=== PATIENT | male | born 1930 | race Hispanic/Latino ===

== ENCOUNTER 2020-07-07 03:59 | Observation (INO) | payer OTHER, BC ==
[2020-07-07 05:21] LABS: Absolute Lymphocytes (CBC) 1.2 K/uL (0.7-4.9); Basophils % 1.1 % (0-1.3); Hematocrit 44.1 % (39.6-49.0); Lymphocytes % 9.3 % (15.3-44.8); MPV 8.6 fL (7.6-11.3); RBC Red Blood Cell Count 5.07 M/uL (4.33-5.43)
[2020-07-07 05:22] LABS: Protime INR 1.09
[2020-07-07] MEDS ORDERED: MORPHINE 2 MG/ML SYR ONE ×2 (05:23→06:20)
[2020-07-07] MEDS ORDERED: ASPIRIN 81 MG CHEWABLE TABLET ONE (05:23)
[2020-07-07] MEDS ORDERED: ONDANSETRON 4 MG/2 ML VIAL ONE (05:24)
[2020-07-07 05:25] LABS: ALT/SGPT 10 U/L (12-78); AST/SGOT 10 U/L (15-37); Albumin 3.9 g/dL (3.4-5.0); Alkaline Phosphatase 127 U/L (45-117); BUN Blood Urea Nitrogen 18 mg/dL (7-18); Bicarbonate 25 mmol/L (21-32); Bilirubin Direct 0.1 mg/dL (0-0.2); Bilirubin Total 0.4 mg/dL (0.2-1.0); Glucose Level 198 mg/dL (74-106); Magnesium 2.1 mg/dL (1.8-2.4); NT PRO-BNP 501 pg/mL (<450); Potassium 3.3 mmol/L (3.5-5.1); Protein, Total 7.9 g/dL (6.4-8.2); Sodium Level 139 mmol/L (136-145); Troponin (Emerg Dept Use Only) < 0.02 ng/mL (0.0-0.045)
--- NOTE | 2020-07-07 05:39 | ER ---
Nurse's Notes [facility] Name: Louis Del Rio Age: 89 yrs Sex: Male : 1930 Arrival Date: 07/07/2020 Time: 04:00 Bed 8 Private MD: Robbin Juarez C Diagnosis: Chest pain, unspecified Presentation: 07/07 05:25 Chief complaint: Patient states: chest pain started at 2330 last night, right anterior rv chest wall. stabbing pain, 8/10. Coronavirus screen: Client denies travel out of the [place] in the last 14 days. Ebola Screen: No symptoms or risks identified at this time. Initial Sepsis Screen: Does the patient meet any 2 criteria? No. Patient's initial sepsis screen is negative. Does the patient have a suspected source of infection? No. Patient's initial sepsis screen is negative. Risk Assessment: Do you want to hurt yourself or someone else? Patient reports no desire to harm self or others. Onset of symptoms was July 06, 2020 at 23:30. 05:25 Method Of Arrival: Ambulatory rv 05:25 Acuity: JOSUE 3 rv Triage Assessment: 05:26 General: Appears uncomfortable, Behavior is calm, cooperative. Pain: Complains of pain rv in chest. Neuro: Level of Consciousness is awake, alert, obeys commands, Oriented to person, place, time, situation. Cardiovascular: Patient's skin is warm and dry. Respiratory: Airway is patent Respiratory effort is even, unlabored, Breath sounds are clear bilaterally. Derm: Skin is intact. Historical: - Allergies: 05:26 No Known Allergies; rv - PMHx: 05:26 Arthritis; gallbladder CA; rv - PSHx: 05:26 Unable to obtain; rv - Immunization history:: Adult Immunizations up to date. - Social history:: Smoking status: Patient denies any tobacco usage or history of. Screenin:30 Abuse screen: Denies threats or abuse. Denies injuries from another. Nutritional rv screening: No deficits noted. Tuberculosis screening: No symptoms or risk factors identified. Fall Risk None identified. Assessment: 05:30 Pain: Pain does not radiate. Pain began suddenly. rv Vital Signs: 04:23 BP 153 / 58; Pulse 93; Resp 22; Temp 98.2; Pulse Ox 94% on R/A; Weight 84.37 kg (R); tt3 Height 5 ft. 11 in. (180.34 cm) (R); Pain 8/10; 05:31 BP 144 / 82; Pulse 64; Resp 15; Pulse Ox 96% on R/A; rv 06:08 BP 151 / 93; Pulse 91; Resp 23; Pulse Ox 97% on R/A; rv 04:23 Body Mass Index 25.94 (84.37 kg, 180.34 cm) tt3 ED Course: 04:00 Patient arrived in ED. am2 04:00 Robbin Juarez MD is Private Physician. am2 04:04 Francisco Hamilton MD is Attending Physician. mh7 04:24 EKG done, by ED staff. tt3 04:31 Papi Newberry RN is Primary Nurse. rv 04:47 XRAY Chest (1 view) In Process Unspecified. EDMS 05:00 Inserted saline lock: 20 gauge in left antecubital area, using aseptic technique. Blood rv collected. Patient maintains SpO2 saturation greater than 95% on room air. 05:26 Triage completed. rv 05:30 Arm band placed on right wrist. Patient placed in the treatment room, on a stretcher, rv Patient notified of wait time. 05:30 Patient has correct armband on for positive identification. quality assurance monitor chassis on. Pulse rv ox on. NIBP on. 05:38 Robbin Juarez MD is Hospitalizing Provider. mh7 05:48 No provider procedures requiring assistance completed. rv 07:09 Primary Nurse role handed off by Papi Newberry RN bp 07:09 Delvin Oakley, KIM is Primary Nurse. bp 20:26 IV discontinued, intact, bleeding controlled, No redness/swelling at site. Pressure ea dressing applied. Administered Medications: 05:22 Drug: Zofran (Ondansetron) 4 mg Route: IVP; Site: left antecubital; rv 06:07 Follow up: Response: No adverse reaction rv 05:22 Drug: Aspirin Chewable Tablet 162 mg Route: PO; rv 06:07 Follow up: Response: No adverse reaction rv 05:23 Drug: morphine 2 mg {Note: rass 0.} Route: IVP; Site: left antecubital; rv 06:07 Follow up: Response: No adverse reaction; Pain is unchanged, physician notified; RASS: rv Alert and Calm (0) 06:07 Drug: morphine 2 mg Route: IVP; Site: left antecubital; rv Outcome: 05:39 Decision to Hospitalize by Provider. hans 20:25 Discharged to home with family. marge 20:25 Condition: stable 20:25 Discharge instructions given to patient, Instructed on discharge instructions, follow up and referral plans. medication usage, Demonstrated understanding of instructions, follow-up care, medications. 20:26 Patient left the ED. ea Signatures: Dispatcher [employer] EDAnn Ramos am2 Sarika Ray RN RN Delvin Cordero RN RN Papi Li RN RN rv Holmes, Maurice, MD MD [facility] Iain Brandon3
--- NOTE | 2020-07-07 05:40 | EDPHYS ---
Physician Documentation [facility] Name: Louis Del Rio Age: 89 yrs Sex: Male : 1930 Arrival Date: 07/07/2020 Time: 04:00 Bed 8 Private MD: Robbin Juarez C ED Physician Francisco Hamilton HPI: 07/07 04:59 This 89 yrs old Male presents to ER via Unassigned with complaints of Chest mh7 Pain > 30 y/o. 04:59 The patient or guardian reports chest pain that is located primarily in the anterior mh7 chest wall, right. Onset: last night. The pain does not radiate. Associated signs and symptoms: Pertinent positives: nausea, vomiting. The chest pain is described as a heaviness. Duration: The patient or guardian reports multiple episodes, that are intermittent, that wax and wane, with no pattern. Modifying factors: The symptoms are alleviated by nothing. the symptoms are aggravated by deep breath. Severity of pain: At its worst the pain was moderate last night, in the emergency department the pain is unchanged. Historical: - Allergies: 05:26 No Known Allergies; rv - PMHx: 05:26 Arthritis; gallbladder CA; rv - PSHx: 05:26 Unable to obtain; rv - Immunization history:: Adult Immunizations up to date. - Social history:: Smoking status: Patient denies any tobacco usage or history of. ROS: 04:59 Constitutional: Negative for fever, chills, and weight loss, Eyes: Negative for injury, mh7 pain, redness, and discharge, ENT: Negative for injury, pain, and discharge, Neck: Negative for injury, pain, and swelling, Back: Negative for injury and pain, : Negative for injury, bleeding, discharge, and swelling, MS/Extremity: Negative for injury and deformity, Skin: Negative for injury, rash, and discoloration, Neuro: Negative for headache, weakness, numbness, tingling, and seizure, Psych: Negative for depression, anxiety, suicide ideation, homicidal ideation, and hallucinations, Allergy/Immunology: Negative for hives, rash, and allergies, Endocrine: Negative for neck swelling, polydipsia, polyuria, polyphagia, and marked weight changes, Hematologic/Lymphatic: Negative for swollen nodes, abnormal bleeding, and unusual bruising. Exam: 04:59 Constitutional: This is a well developed, well nourished patient who is awake, alert, mh7 and in no acute distress. Head/Face: Normocephalic, atraumatic. Eyes: Pupils equal round and reactive to light, extra-ocular motions intact. Lids and lashes normal. Conjunctiva and sclera are non-icteric and not injected. Cornea within normal limits. Periorbital areas with no swelling, redness, or edema. Neck: Trachea midline, no thyromegaly or masses palpated, and no cervical lymphadenopathy. Supple, full range of motion without nuchal rigidity, or vertebral point tenderness. No Meningismus. Chest/axilla: Normal chest wall appearance and motion. Nontender with no deformity. No lesions are appreciated. Cardiovascular: Regular rate and rhythm with a normal S1 and S2. No gallops, murmurs, or rubs. Normal PMI, no JVD. No pulse deficits. Respiratory: Lungs have equal breath sounds bilaterally, clear to auscultation and percussion. No rales, rhonchi or wheezes noted. No increased work of breathing, no retractions or nasal flaring. Abdomen/GI: Soft, non-tender, with normal bowel sounds. No distension or tympany. No guarding or rebound. No evidence of tenderness throughout. Back: No spinal tenderness. No costovertebral tenderness. Full range of motion. Skin: Warm, dry with normal turgor. Normal color with no rashes, no lesions, and no evidence of cellulitis. MS/ Extremity: Pulses equal, no cyanosis. Neurovascular intact. Full, normal range of motion. Neuro: Awake and alert, GCS 15, oriented to person, place, time, and situation. Cranial nerves II-XII grossly intact. Motor strength 5/5 in all extremities. Sensory grossly intact. Cerebellar exam normal. Normal gait. Psych: Awake, alert, with orientation to person, place and time. Behavior, mood, and affect are within normal limits. Vital Signs: 04:23 BP 153 / 58; Pulse 93; Resp 22; Temp 98.2; Pulse Ox 94% on R/A; Weight 84.37 kg (R); tt3 Height 5 ft. 11 in. (180.34 cm) (R); Pain 8/10; 05:31 BP 144 / 82; Pulse 64; Resp 15; Pulse Ox 96% on R/A; rv 06:08 BP 151 / 93; Pulse 91; Resp 23; Pulse Ox 97% on R/A; rv 04:23 Body Mass Index 25.94 (84.37 kg, 180.34 cm) tt3 MDM: 05:36 Differential diagnosis: abnormal EKG, acute myocardial infarction, acute pericarditis, mh7 anxiety, coronary artery disease chest wall pain, congestive heart failure cholecystitis, Cholelithiasis costochondritis, gastritis, herpes zoster, mitral valve prolapse, pancreatitis, peptic ulcer disease, pericarditis, pneumonia, pneumothorax. HEART Score: History: Moderately Suspicious (1), ECG: Non specific repolarization disturbance / LBTB / PM (1), Age: > or = 65 years (2), Risk Factors: 1 or 2 risk factors (1), [Hypertension] Troponin: < or = 1 x Normal Limit (0), Total Score = 5. The patient was given aspirin in the Emergency Department. Data reviewed: vital signs, nurses notes, lab test result(s), cardiac enzymes, CBC, electrolytes, urinalysis, EKG, radiologic studies, plain films. Data interpreted: Pulse oximetry: on room air is 96 %. Interpretation: normal. Counseling: I had a detailed discussion with the patient and/or guardian regarding: the historical points, exam findings, and any diagnostic results supporting the discharge/admit diagnosis, the presence of at least one elevated blood pressure reading (>120/80) during this emergency department visit, lab results, radiology results, the need for further work-up and treatment in the hospital. Response to treatment: the patient's symptoms have mildly improved after treatment. 05:39 Patient medically screened. 07/07 04:31 Order name: Basic Metabolic Panel; Complete Time: 05:30 07/07 04:31 Order name: CBC with Diff; Complete Time: 05:30 07/07 04:31 Order name: LFT's; Complete Time: 05:30 07/07 04:31 Order name: Magnesium; Complete Time: 05:07/07 04:31 Order name: NT PRO-BNP; Complete Time: 05:30 07/07 04:31 Order name: PT-INR; Complete Time: 05:07/07 04:31 Order name: Troponin (emerg Dept Use Only); Complete Time: 05:30 7 07/07 06:36 Order name: Troponin I [facility] 07/07 06:36 Order name: Troponin I; Complete Time: 19:33 [facility] 07/07 06:36 Order name: Troponin I; Complete Time: 19:33 [facility] 07/07 06:36 Order name: Troponin I; Complete Time: 19:33 [facility] 07/07 10:40 Order name: CORONAVIRUS [facility] 07/07 11:24 Order name: SARS-COV-2 RT PCR; Complete Time: 19:33 [facility] 07/07 13:35 Order name: Carcinoembryonic Antigen; Complete Time: 19:33 [facility] 07/07 04:31 Order name: XRAY Chest (1 view); Complete Time: 19:33 7 07/07 04:31 Order name: EKG; Complete Time: 04:33 7 07/07 04:31 Order name: Cardiac monitoring; Complete Time: 05:48 7 07/07 04:31 Order name: EKG - Nurse/Tech; Complete Time: 05:48 7 07/07 04:31 Order name: IV Saline Lock; Complete Time: 05:48 7 07/07 04:31 Order name: Labs collected and sent; Complete Time: 05:48 7 07/07 04:31 Order name: O2 Per Protocol; Complete Time: 05:48 7 07/07 06:36 Order name: CONS Physician Consult [facility] 07/07 06:36 Order name: Heart Healthy [facility] 07/07 13:17 Order name: Diet Ada 1800 Uri; Complete Time: 13:18 eb 07/07 13:39 Order name: Hemoglobin A1c; Complete Time: 19:33 [facility] 07/07 15:36 Order name: US; Complete Time: 19:33 [facility] 07/07 04:31 Order name: O2 Sat Monitoring; Complete Time: 05:48 mh7 Administered Medications: 05:22 Drug: Zofran (Ondansetron) 4 mg Route: IVP; Site: left antecubital; rv 06:07 Follow up: Response: No adverse reaction rv 05:22 Drug: Aspirin Chewable Tablet 162 mg Route: PO; rv 06:07 Follow up: Response: No adverse reaction rv 05:23 Drug: morphine 2 mg {Note: rass 0.} Route: IVP; Site: left antecubital; rv 06:07 Follow up: Response: No adverse reaction; Pain is unchanged, physician notified; RASS: rv Alert and Calm (0) 06:07 Drug: morphine 2 mg Route: IVP; Site: left antecubital; rv Disposition: 07/07/20 05:39 Hospitalization ordered by Robbin Juarez for Observation. Preliminary diagnosis is Chest pain, unspecified. - Bed requested for [facility] ER HOLD. - Status is Observation. ea - Condition is Stable. - Problem is new. - Symptoms have improved. Signatures: Dispatcher [employer] EDMS Sarika Ray RN RN Delvin Cordero, RN RN Papi Li, RN RN Francisco Nick MD MD 7 Corrections: (The following items were deleted from the chart) 07:09 05:39 Hospitalization Ordered by A Ann SANTIAGO for Observation. Preliminary diagnosis is bp Chest pain, unspecified. Bed requested for Telemetry/MedSurg (observation). Status is Observation. Condition is Stable. Problem is new. Symptoms have improved. [facility] 20:26 07:09 07/07/2020 05:39 Hospitalization Ordered by A Ann SANTIAGO for Observation. ea Preliminary diagnosis is Chest pain, unspecified. Bed requested for [facility] ER HOLD. Status is Observation. Condition is Stable. Problem is new. Symptoms have improved. bp
[2020-07-07] MEDS ORDERED: NITROGLYCERIN 0.4 MG/TAB SL PRN (06:31)
[2020-07-07] MEDS ORDERED: MORPHINE 4 MG/ML SYR IV PRN (06:31)
[2020-07-07 08:28] VITALS: BMI 25.9
[2020-07-07] MEDS ORDERED: ASPIRIN EC 81 MG TAB PO SCH (09:00)
[2020-07-07] MEDS ORDERED: POTASSIUM CL SA 10 MEQ TAB PO ONE ×2 (09:24→10:19)
[2020-07-07] MEDS ORDERED: ASPIRIN EC 81 MG TAB PO ONE (10:19)
[2020-07-07] MEDS ORDERED: FAMOTIDINE 20 MG/2 ML VIAL IV SCH (12:00)
--- NOTE | 2020-07-07 12:10 | RAD REPORT ---
EXAM DESCRIPTION: RAD - Chest Single View - 07/07/2020 4:47 am CLINICAL HISTORY: 89 years Male, CHEST PAIN COMPARISON: 04/27/2019 TECHNIQUE: Single portable x-ray view of the chest performed on 07/07/2019 07/02/1929 6:00 AM FINDINGS: The lungs are mildly hyperinflated and are grossly clear. No focal airspace process is betty ntified.. There is no evidence of a pneumothorax. The cardiac silhouette appears prominent and may be accentuated by the portable technique. The mediastinal contours are normal. No acute osseous abnormality is identified. There are degenerative changes of the shoulders. No acute soft tissue abnormalities are seen. Lines and tubes: None. IMPRESSION: 1. No definite acute intrathoracic disease. 2. Mild hyperinflation of the lungs which may be due to underlying emphysema. Electronically signed by: Neida Arreola DO 07/07/2020 6:34 AM [facility] [employer] Due to temporary technical issues with the PACS/Fluency reporting system, reports are being signed by the in house radiologists without review as a courtesy to insure prompt reporting. The interpreting radiologist is fully responsible for the content of the report.
--- NOTE | 2020-07-07 13:27 | SS ---
Date of Discharge: 07/07/2020 Chief Complaint: Abdominal pain. History Of Present Illness: This is an 89-year-old male patient who started to have right upper quad rant abdominal pain after dinner last night and his pain continued, did not improve at all, so he cam e into the emergency room. He did have 2 episodes of vomiting associated with this pain. Denies any shortness of breath. After he was evaluated in the ER, he was admitted to the hospital. He denies any chest pain. Patient reports that his pain has moved from right upper quadrant into epigastric re gion and after he was given Tylenol, it actually did help to improve his pain. Denies any constipati on or diarrhea. No fever. No chills. He started to have some cough after he came to emergency room , not coughing up any mucus. Allergies: TO IODINE CAUSING CONVULSION. Medications: At home, he takes amlodipine 2.5 mg daily, gabapentin 100 mg 3 times a day. Review of Systems: GI: As mentioned above. Respiratory: As mentioned above. All other systems reviewed and negative. Past Medical History: Significant for COPD, hypothyroidism, type 2 diabetes mellitus, hypertension, mixed hyperlipidemia, chronic kidney disease stage 3A, benign prostatic hypertrophy, osteoarthritis, and colon cancer involving cecum. Past Surgical History: Cataract surgery and back surgery, surgery for wrist fracture, knee surgery. Family History: Significant for father had DE. Mother had arthritis. Siblings with diabetes. Social History: Prior history of smoking not at present time. Use of alcohol negative. Physical Examination: Vital Signs: Height 5 feet 11 inches, weight 186 pounds, pulse 92, respiratory rate 17, blood pressu re 130/74, oxygen saturation 95% on room air. General: Awake, alert, oriented, not in distress. HEENT: Head atraumatic, normocephalic. Conjunctivae nonerythematous. Sclerae white. Mouth, no thr ush or edema noted. Ears/Nose, no mass, lesion, discharge noted. Neck: Supple. No JVD, lymph nodes, bruit, thyromegaly noted. Lungs: Bilateral good equal air entry. Clear to auscultation. No rhonchi. No rales. Heart: Normal heart sounds, no murmur or gallop. Abdomen: Patient has very mild epigastric tenderness. No rebound tenderness. Bowel sounds normoact matilde. No abdominal distention. No hepatosplenomegaly. No bruit. Extremities: No leg edema. No calf tenderness. Skin: No rash, ulcer, cellulitis. Lymphatics: No lymph node enlargement in neck, supraclavicular, infraclavicular region. Neuro: No focal neurological deficit. Chest: Unremarkable. External Genitalia: Deferred. Rectal: Deferred. Laboratory Data: White count 12.8, hemoglobin 14.3, platelets 200. INR 1.09. Sodium 131, potassium 3.3, chloride 106, bicarb 25, BUN 18, creatinine 1.41, glucose 198. Liver function tests unremarkab le. Troponin less than 0.02 x2. ProBNP 501. Chest x-ray was reported as no acute changes. Hospital Course: After I evaluated him, I did order abdominal ultrasound and Pepcid 20 mg IV. After the ultrasound is done, we will order diet for patient and if there is no acute or significant findi ng on abdominal ultrasound, then our plan will be to discharge him to go home with outpatient followu p, and I would like for patient to continue to take famotidine 20 mg twice a day at home. COVID-19 t est was ordered to be done in emergency room after I saw him. Details and plan of treatment were dis cussed with the patient. The patient does not have any cardiac chest pain. Final Diagnoses: 1.Abdominal pain, epigastric. 2.Acute gastritis. 3.Chronic kidney disease stage 3A. 4.Type 2 diabetes mellitus. 5.Chronic obstructive pulmonary disease. 6.Hypertension. 7.Mixed hyperlipidemia. 8.Colon cancer, cecum. 9.Osteoarthritis, multiple sites. 10.Benign prostatic hypertrophy. Discharge Medications And Instructions: 1.Continue all prior home medications. 2.Famotidine 20 mg p.o. 2 times a day. 3.Follow up in my office next week. JACOB/MODL Voice ID: [id number] Report ID: [id number]
--- NOTE | 2020-07-07 15:35 | RAD REPORT ---
EXAM DESCRIPTION: US - Abdomen Exam Complete - 07/07/2020 2:53 pm CLINICAL HISTORY: epigastric, RUQ pain COMPARISON: CT ABDOMEN PELVIS WO CONTRAST dated 06/09/2014 FINDINGS: Gallbladder is absent. No mass or abnormal fluid collection in the gallbladder fossa. Comm on bile duct is normal with no common duct stone identified. Liver is 17 cm in maximum dimension. Spleen is 7 cm. No focal lesions identified. No portal vein abno rmality. Portions of the left lobe were obscured by bowel gas. The pancreas is grossly normal but partially obscured by bowel gas. No hydronephrosis or suspicious mass in either kidney. A 2 centimeter cyst is present mid right kidn ey. A large 6.7 centimeter cyst present lower pole left kidney. Aorta and IVC are partially obscured by bowel. No ascites or bulky lymphadenopathy. IMPRESSION: Cholecystectomy with no biliary tree dilatation. No other significant or suspicious findings noted. Portions of the liver, pancreas, aorta and IVC are obscured due to prominent bowel pattern.
[2020-07-07] MEDS ORDERED: MORPHINE 4 MG/ML SYR ONE (15:51)
[2020-07-07 16:16] VITALS: BP 125/83
[2020-07-07 20:52] VITALS: TEMP 98.2
[2020-07-07 20:54] VITALS: O2SAT 97
--- NOTE | 2020-07-08 07:27 | EKG ---
Test Date: 2020-07-07 Test Time: 04:17:43 Motor Scooter Mechanic: TLT MEASUREMENT RESULTS: Intervals: Rate: 86 MO: 200 QRSD: 102 QT: 362 QTc: 433 Watkins: P: 48 MO: 200 QRS: -41 T: 37 INTERPRETIVE STATEMENTS: Poor data quality, interpretation may be adversely affected Sinus rhythm with frequent premature ventricular complexes Left axis deviation Abnormal ECG Compared to ECG 12/05/2015 07:54:23 Ventricular premature complex(es) now present Sinus bradycardia no longer present First degree AV block no longer present Electronically Signed On 07-08-20 07:24:16 RN ANESTHETIST by Tito Briceno
--- NOTE | 2020-07-09 11:30 | EKG ---
Test Date: 2020-07-07 Test Time: 04:18:25 Tiltrotor Crew Chief: TLT MEASUREMENT RESULTS: Intervals: Rate: 91 MI: 220 QRSD: 104 QT: 388 QTc: 477 Harwood: P: 50 MI: 220 QRS: -48 T: 43 INTERPRETIVE STATEMENTS: Sinus rhythm with 1st degree AV block with premature atrial complexes with aberrant conduction Possible Left atrial enlargement Left anterior fascicular block Abnormal ECG Compared to ECG 07/07/2020 04:17:43 Atrial premature complex(es) now present First degree AV block now present Aberrant conduction of supraventricular beat(s) now present Left anterior fascicular block now present Ventricular premature complex(es) no longer present Left-axis deviation no longer present Electronically Signed On 07-09-20 11:27:24 CLINICAL SCIENCE CONSULTANT by Tito Briceno
== END 2020-07-07 20:29 | disposition home or self-care (01) ==
LOC: ER 03:59 → ERHOLD 06:29
PROVIDERS: ADMIT Internal Medicine; ATTEND Internal Medicine
DX: K29.00 Acute gastritis without bleeding (principal); E11.22 Type 2 diabetes mellitus with diabetic chronic kidney disease; I12.9 Hypertensive chronic kidney disease with stage 1 through stage 4 chronic kidney disease, or unspecified chronic kidney disease; N18.31 Chronic kidney disease, stage 3a; Z20.822 Contact with and (suspected) exposure to COVID-19; J44.9 Chronic obstructive pulmonary disease, unspecified; E03.9 Hypothyroidism, unspecified; E78.2 Mixed hyperlipidemia; N40.0 Benign prostatic hyperplasia without lower urinary tract symptoms; M19.90 Unspecified osteoarthritis, unspecified site; C18.0 Malignant neoplasm of cecum; Z87.891 Personal history of nicotine dependence; R94.31 Abnormal electrocardiogram [ECG] [EKG]
CPT/HCPCS: 93005; 85025; 80048; 36415; 83735; 85610; 80076; 82378; 83036; 84484 ×4; 83880; 71045; 76700; U0003; J2270 ×2; J2405; 96374; 96375; 99285; G0378

== ENCOUNTER 2022-07-06 14:36 | Inpatient (IN) | payer BC, OTHER ==
--- OUTSIDE RECORDS SUMMARY | 2022-07-06 14:38 | XMS REPORT | Continuity of Care Document ---
:1930 Author Organization [facility] t Address [address] [place] [address] Care Team Providers Name Role Phone REI MAYES Robbin Primary Care Physician Unavailable Juan Ortega RN Attending Clinician Unavailable Only, Ward Db Test Attending Clinician Unavailable Rizwana Lagos Attending Clinician JOSIAH ALEGRIA Attending Clinician Unavailable Doctor Unassigned, [place] Attending Clinician Unavailable Payers Payer Name Policy Type Policy Number Effective Date Expiration Date S ource Problems This patient has no known problems. Allergies, Adverse Reactions, Alerts Allergy Allergy Status Severity Reaction(s) Onset Inactive Treating Comm ents Source Name Type Date Date Clinician NO KNOWN Drug Active [facility] ALLERGIE Class ity of [facility] Social History Social Habit Start Date Stop Date Quantity Comments Source Exposure to 2021-12-03 2021-12-13 Yes [facility] SARS-CoV-2 (event) 00:00:00 [facility]43[facility] Assigned At [birth year] [facility] 00:00:00 00:00:00 [facility] Smoking Status Start Date Stop Date Source Unknown if ever smoked [facility] Medications This patient has no known medications. Immunizations Ordered Filled Immunization Date Status Comments Sour e Immunization Name Name SARS-COV-2 COVID-19 2020-09-02 Completed Unive rsity of [facility] VACCINE 00:00:00 [facility] SARS-COV-2 COVID-19 2020-09-02 Completed Unive rsity of MODERNA VACCINE 00:00:00 [facility] SARS-COV-2 COVID-19 2020-09-02 Completed Unive rsity of MODERNA VACCINE 00:00:00 [facility] Procedures This patient has no known procedures. Encounters Start End Encounter Admission Attending Care Care Encounter Source Date/Time Date/Time Type Type Clinicians Facility Department ID 2021-12-14 2021-12-14 Telephone ABI Ortega [id number] Univers 00:00:00 00:00:00 Juan SYBIL [id number] it y of HOSPITAL [id number] [place] as [id number] [address] 2021-12-13 2021-12-13 Laboratory Only, Ang Db Test [facility] [id number] Univers 12:15:00 12:15:00 Only [facility] [id number] ity of [place] [id number] Radames as JOANNA?BLEA [id number] [facility] [address] MEDICAL OFFICE BUILDING 2021-12-13 2021-12-13 Outpatient R AIRAM [facility] [id number] [address] [facility] 11:20:00 11:20:00 JOSIAH ity of [facility] 2021-12-13 2021-12-13 Letter Doctor ABI [id number] Univers 00:00:00 00:00:00 (Out) Unassigned, SYBIL [id number] ity of [place] [facility] [id number] Radames as [phone] [address] Results This patient has no known results.
[2022-07-06] MEDS ORDERED: NA CHLORIDE 0.9% 1,000 ML ONE (15:03)
[2022-07-06 15:30] LABS: Hematocrit 40.6 % (39.6-49.0); Lymphocytes % 9.9 % (15.3-44.8); MCV 86.9 fL (80-100); MPV 7.9 fL (7.6-11.3); RBC Red Blood Cell Count 4.68 M/uL (4.33-5.43)
[2022-07-06 15:42] LABS: Urine Blood Negative (Negative); Urine Glucose Negative (Negative); Urine Protein 3+ (Negative); Urine Specific Gravity >=1.030 (1.005-1.030); Urine pH 5.5 (5.0-7.0)
[2022-07-06 15:43] LABS: Bilirubin Total 0.5 mg/dL (0.2-1.0); Potassium 3.7 mmol/L (3.5-5.1); Protein, Total 8.4 g/dL (6.4-8.2)
[2022-07-06 15:44] LABS: Albumin 2.9 g/dL (3.4-5.0)
[2022-07-06 16:05] LABS: SARS-COV-2 RT PCR NEGATIVE (NEGATIVE)
--- NOTE | 2022-07-06 16:14 | RAD REPORT ---
EXAM DESCRIPTION: CT - Abdomen Pelvis Wo Contrast - 07/06/2022 4:03 pm CLINICAL HISTORY: Abdominal pain. diarrhea, weakness, anorexia COMPARISON: Abdomen Pelvis W Contrast dated 11/15/2020 TECHNIQUE: CT imaging of the abdomen and pelvis was performed without contrast. Solid organ, bowel a nd vascular assessment is limited due to lack of IV and oral contrast. All CT scans are performed using dose optimization technique as appropriate and may include automated exposure control or mA/KV adjustment according to patient size. FINDINGS: Fibrotic changes are present in both lung bases.Increased posterior right lower lobe pulmo nary findings noted. Cholecystectomy clips. Small hiatal hernia. No liver mass seen. No biliary dilatation. The spleen, pancreas and adrenal glan ds are normal. Bilateral renal cysts are present. 7 cm left renal cyst. No bowel obstruction, free air, free fluid or abscess. There is significant diverticulosis noted of t he sigmoid colon with wall thickening and mild inflammatory changes. This may represent a acute diver ticulitis. No abscess. The appendix is normal. Lumbar hardware is noted. IMPRESSION: [id number] sigmoid acute diverticulitis is probably present. Consider followup col onoscopy after appropriate therapy to ensure no mass is present. A limited non-contrast examination was performed as detailed.
--- NOTE | 2022-07-06 16:30 | RAD REPORT ---
EXAM DESCRIPTION: RAD - Chest Single View - 07/06/2022 4:19 pm CLINICAL HISTORY: COUGH Chest pain. COMPARISON: Chest Single View dated 10/10/2021; Chest Single View dated 07/07/2020; Chest Pa And Lat (2 Views) dated 04/27/2019; Chest Single View dated 12/04/2015 FINDINGS: Portable technique limits examination quality. Emphysematous changes are present throughout the lungs. Linear opacities in both lung bases, greater on the right may represent mild infiltrate or atelectasis. The heart is mildly enlarged. No displaced fractures.
[2022-07-06] MEDS ORDERED: CIPROFLOXACIN 400mg IV 400 MG/200 ML BAG IV ONE (16:35)
[2022-07-06] MEDS ORDERED: METRONIDAZOLE 500mg IVPB 500 MG/100 ML BAG IV ONE (16:36)
--- NOTE | 2022-07-06 16:46 | EDPHYS ---
Physician Documentation [facility] Name: Louis Del Rio Age: 89 yrs Sex: Male : 1930 Arrival Date: 07/06/2022 Time: 14:39 Bed 18 Private MD: ED Physician Jluis Li HPI: 07/06 15:00 This 89 yrs old Male presents to ER via Wheelchair with complaints of cough, rn weakness, anorexia, diarrhea. 15:00 Pt reports 5 days of cough, diarrhea, weakness, anorexia, fatigue. No fever. No sob. No rn abd pain. . Onset: The symptoms/episode began/occurred 5 day(s) ago. Severity of symptoms: At their worst the symptoms were moderate in the emergency department the symptoms are unchanged. The patient has not experienced similar symptoms in the past. The patient has not recently seen a physician. Historical: - Allergies: 14:48 acetaminophen; hb - PMHx: 14:48 Arthritis; gallbladder CA; Hypertensive disorder; hb - Immunization history:: Adult Immunizations up to date, Client reports receiving the 2nd dose of the Covid vaccine, Flu vaccine is up to date. - Social history:: Smoking status: Patient denies any tobacco usage or history of. - Family history:: not pertinent. - Hospitalizations: : No recent hospitalization is reported. ROS: 15:00 Constitutional: Negative for fever, chills, and weight loss, Eyes: Negative for injury, rn pain, redness, and discharge, Neck: Negative for injury, pain, and swelling, Cardiovascular: Negative for chest pain, palpitations, and edema, Respiratory: Negative for shortness of breath, wheezing, and pleuritic chest pain, Abdomen/GI: Negative for abdominal pain, nausea, vomiting, and constipation, Back: Negative for injury and pain, MS/Extremity: Negative for injury and deformity, Skin: Negative for injury, rash, and discoloration, Neuro: Negative for headache, numbness, tingling, and seizure. Exam: 15:00 Constitutional: This is a well developed, well nourished patient who is awake, alert, rn and in no acute distress. Head/Face: Normocephalic, atraumatic. ENT: dry MM Cardiovascular: Regular rate and rhythm with a normal S1 and S2. No gallops, murmurs, or rubs. Normal PMI, no JVD. No pulse deficits. Respiratory: + cough, neg for sob Abdomen/GI: soft, non-tender, no masses Skin: Warm, dry, poor skin turgor MS/ Extremity: Pulses equal, no cyanosis. Neuro: Awake and alert, GCS 15 Vital Signs: 14:46 BP 133 / 76; Pulse 94; Resp 18; Temp 97.4(TE); Pulse Ox 98% on R/A; Weight 76.2 kg; hb Height 5 ft. 11 in. (180.34 cm); Pain 0/10; 15:47 BP 126 / 62; Pulse 67; Resp 17; Pulse Ox 96% on R/A; kr3 17:26 BP 121 / 60; Pulse 63; Resp 18; Pulse Ox 96% on R/A; kr3 19:44 BP 121 / 46; Pulse 64; Resp 20 S; Pulse Ox 95% on R/A; ha1 20:44 BP 121 / 48; Pulse 65; Resp 20 S; Pulse Ox 94% on R/A; ha1 14:46 Body Mass Index 23.43 (76.20 kg, 180.34 cm) hb MDM: 14:40 Patient medically screened. rn 16:37 Differential Diagnosis Viral syndrome, covid, flu, enteritis, colitis, diverticulitis, rn dehydration, acute kidney failure, pneumonia.. Data reviewed: vital signs, nurses notes, lab test result(s), radiologic studies, CT scan, and as a result, I will admit patient. Test interpretation: by ED physician or midlevel provider: plain radiologic studies, Independent interpretation of xray by me: CXR without gross pneumonia or pneumothorax. Counseling: I had a detailed discussion with the patient and/or guardian regarding: the historical points, exam findings, and any diagnostic results supporting the discharge/admit diagnosis, lab results, radiology results, the need for further work-up and treatment in the hospital. Response to treatment: the patient's symptoms have mildly improved after treatment, and as a result, I will admit patient. Admission orders: after a detailed discussion of the patient's condition and case, the admit orders are written by me. ED course: Pt with mild to moderate diverticulitis, no perforation, + dehydration. Care affected by age of patient, and 's inability to care for patient if worsens at home. Discussed case and results with pcp Dr. Juarez, who accepts patient for admission. Abx administered. . 07/06 14:57 Order name: COVID-19/FLU A+B; Complete Time: 16:15 rn 07/06 16:17 Interpretation: Within normal limits. rn 07/06 14:57 Order name: CBC with Diff; Complete Time: 16:15 rn 07/06 16:16 Interpretation: Normal except: HGB 13.2. rn 07/06 14:57 Order name: CMP; Complete Time: 16:15 rn 07/06 16:17 Interpretation: Normal except: BUN 35; CRE 1.97; GLUC 140. rn 07/06 14:57 Order name: Lipase; Complete Time: 16:15 rn 07/06 16:17 Interpretation: Within normal limits. rn 07/06 15:42 Order name: Urine Dipstick-Ancillary; Complete Time: 16:15 EDMS 07/06 16:17 Interpretation: Normal except: UPROT 3+. rn 07/06 14:57 Order name: IV Saline Lock; Complete Time: 15:16 rn 07/06 14:57 Order name: Labs collected and sent; Complete Time: 15:16 rn 07/06 14:57 Order name: Urine Dipstick-Ancillary (obtain specimen); Complete Time: 15:42 rn 07/06 14:57 Order name: XRAY Chest (1 view); Complete Time: 16:31 rn 07/06 15:55 Order name: Abdomen ; Complete Time: 16:15 EDMS 07/06 16:17 Interpretation: Abnormal. rn Administered Medications: 15:16 Drug: NS 0.9% 1000 ml Route: IV; Rate: 1 bolus; Site: left antecubital; kr3 16:40 Drug: Cipro (ciprofloxacin) 400 mg Volume: 200 ml; Route: IVPB; Infused Over: 60 mins; kr3 Site: left antecubital; 16:40 Drug: Flagyl (metroNIDAZOLE) 500 mg Volume: 100 ml; Route: IVPB; Rate: 200 ml/hr; kr3 Infused Over: 30 mins; Site: left antecubital; Disposition Summary: 07/06/22 16:45 Hospitalization Ordered Hospitalization Status: Inpatient Admission rn Provider: Robbin Juarze rn Location: Telemetry/MedSur (Inpatient) rn Condition: Stable rn Problem: new rn Symptoms: have improved rn Bed/Room Type: Standard rn Room Assignment: 402(07/06/22 18:42) kj1 Diagnosis - Diverticulitis of large intestine without perforation or abscess without bleeding rn - Dehydration rn - Muscle weakness (generalized) rn Forms: - Medication Reconciliation Form rn - SBAR form rn Signatures: Dispatcher [employer] EDPA Jluis Li MD MD rn Baxter, Heather, RN Tammy Jaimes kj1 Gabriella Rivero RN RN kr3 Corrections: (The following items were deleted from the chart) 15:55 15:02 Abdomen Pelvis W Con+CT.RAD.BRZ ordered. EDPA EDMS 18:42 16:45 rn kj1
--- NOTE | 2022-07-06 16:46 | ER ---
Nurse's Notes [facility] [place], [place] Name: Louis Del Rio Age: 89 yrs Sex: Male : 1930 Arrival Date: 07/06/2022 Time: 14:39 Bed 18 Private MD: Diagnosis: Diverticulitis of large intestine without perforation or abscess without bleeding;Dehydration;Muscle weakness (generalized) Presentation: 07/06 14:46 Chief complaint: Productive cough, generalized weakness, and decreased appetite x 1 hb week, has not eaten food in five days. Denies pain/N/V/D/fever. Coronavirus screen: Client presents with at least one sign or symptom that may indicate coronavirus-19. Standard/surgical mask placed on the client. Provider contacted for isolation considerations. Ebola Screen: No symptoms or risks identified at this time. Initial Sepsis Screen: Does the patient meet any 2 criteria? No. Patient's initial sepsis screen is negative. Does the patient have a suspected source of infection? No. Patient's initial sepsis screen is negative. Risk Assessment: Do you want to hurt yourself or someone else? Patient reports no desire to harm self or others. Onset of symptoms was June 29, 2022. 14:46 Method Of Arrival: Wheelchair hb 14:46 Acuity: JOSUE 3 hb Historical: - Allergies: 14:48 acetaminophen; hb - PMHx: 14:48 Arthritis; gallbladder CA; Hypertensive disorder; hb - Immunization history:: Adult Immunizations up to date, Client reports receiving the 2nd dose of the Covid vaccine, Flu vaccine is up to date. - Social history:: Smoking status: Patient denies any tobacco usage or history of. - Family history:: not pertinent. - Hospitalizations: : No recent hospitalization is reported. Screenin:44 [facility] ED Fall Risk Assessment (Adult) History of falling in the last 3 months, ha1 including since admission No falls in past 3 months (0 pts) Confusion or Disorientation No (0 pts) Intoxicated or Sedated No (0 pts) Impaired Gait No (0 pts) Mobility Assist Device Used Yes (1 pt) Altered Elimination No (0 pt) Score/Fall Risk Level 0 - 2 = Low Risk Oriented to surroundings, Maintained a safe environment, Educated pt \T\ family on fall prevention, incl call for assistance when getting out of bed, Hourly rounding (assess needs \T\ fall precautionary measures) done. Abuse screen: Denies threats or abuse. Denies injuries from another. Nutritional screening: No deficits noted. Tuberculosis screening: No symptoms or risk factors identified. Assessment: 15:17 General: Appears in no apparent distress. comfortable, Behavior is calm, cooperative, kr3 appropriate for age. Pain: Denies pain. Neuro: Level of Consciousness is awake, alert, obeys commands, Oriented to person, place, time, situation. Cardiovascular: Patient's skin is warm and dry. Respiratory: Airway is patent Respiratory effort is even, unlabored, Respiratory pattern is regular, symmetrical. GI: No signs and/or symptoms were reported involving the gastrointestinal system. : No signs and/or symptoms were reported regarding the genitourinary system. EENT: No signs and/or symptoms were reported regarding the EENT system. Derm: No signs and/or symptoms reported regarding the dermatologic system. Musculoskeletal: Circulation, motion, and sensation intact. 16:15 Reassessment: Patient appears in no apparent distress at this time. Patient and/or kr3 family updated on plan of care and expected duration. Pain level reassessed. Patient is alert, oriented x 3, equal unlabored respirations, skin warm/dry/pink. 17:30 Reassessment: Patient appears in no apparent distress at this time. Patient and/or kr3 family updated on plan of care and expected duration. Pain level reassessed. Patient is alert, oriented x 3, equal unlabored respirations, skin warm/dry/pink. 18:31 Reassessment: Patient appears in no apparent distress at this time. Patient and/or kr3 family updated on plan of care and expected duration. Pain level reassessed. Patient is alert, oriented x 3, equal unlabored respirations, skin warm/dry/pink. 19:44 General: Appears comfortable, Behavior is calm, cooperative. Pain: Denies pain. Neuro: ha1 Level of Consciousness is awake, alert, obeys commands, Oriented to person, place, time, situation. Neuro: Reports weakness in generalized. Cardiovascular: Patient's skin is warm and dry. Respiratory: Airway is patent Respiratory effort is even, unlabored, Respiratory pattern is regular, symmetrical. GI: Abdomen is flat, non-distended. : No signs and/or symptoms were reported regarding the genitourinary system. EENT: No deficits noted. No signs and/or symptoms were reported regarding the EENT system. Derm: Skin is fragile. Musculoskeletal: Circulation, motion, and sensation intact. 20:53 Reassessment: Patient and/or family updated on plan of care and expected duration. Pain ha1 level reassessed. Patient is alert, oriented x 3, equal unlabored respirations, skin warm/dry/pink. awaiting to go to his room. Vital Signs: 14:46 BP 133 / 76; Pulse 94; Resp 18; Temp 97.4(TE); Pulse Ox 98% on R/A; Weight 76.2 kg; hb Height 5 ft. 11 in. (180.34 cm); Pain 0/10; 15:47 BP 126 / 62; Pulse 67; Resp 17; Pulse Ox 96% on R/A; kr3 17:26 BP 121 / 60; Pulse 63; Resp 18; Pulse Ox 96% on R/A; kr3 19:44 BP 121 / 46; Pulse 64; Resp 20 S; Pulse Ox 95% on R/A; ha1 20:44 BP 121 / 48; Pulse 65; Resp 20 S; Pulse Ox 94% on R/A; ha1 14:46 Body Mass Index 23.43 (76.20 kg, 180.34 cm) hb ED Course: 14:39 Patient arrived in ED. hb 14:40 Jluis Li MD is Attending Physician. rn 14:48 Triage completed. hb 14:48 Arm band placed on. hb 14:59 Gabriella Rivero, RN is Primary Nurse. kr3 15:16 COVID-19/FLU A+B Sent. kr3 15:18 Inserted saline lock: 22 gauge in left antecubital area, using aseptic technique. Blood kr3 collected. 16:05 Abdomen In Process Unspecified. EDMS 16:21 XRAY Chest (1 view) In Process Unspecified. EDMS 16:44 Robbin Juarez MD is Hospitalizing Provider. rn 19:44 Patient has correct armband on for positive identification. Placed in gown. Bed in low ha1 position. Call light in reach. Side rails up X 1. 21:05 No provider procedures requiring assistance completed. Patient admitted, IV remains in vc1 place. Administered Medications: 15:16 Drug: NS 0.9% 1000 ml Route: IV; Rate: 1 bolus; Site: left antecubital; kr3 16:40 Drug: Cipro (ciprofloxacin) 400 mg Volume: 200 ml; Route: IVPB; Infused Over: 60 mins; kr3 Site: left antecubital; 16:40 Drug: Flagyl (metroNIDAZOLE) 500 mg Volume: 100 ml; Route: IVPB; Rate: 200 ml/hr; kr3 Infused Over: 30 mins; Site: left antecubital; Medication: 20:59 VIS not applicable for this client. ha1 Outcome: 16:45 Decision to Hospitalize by Provider. rn 21:06 Admitted to Tele accompanied by tech, via wheelchair, room 402. 1 21:06 Condition: good 21:06 Instructed on the need for admit. 21:06 Patient left the ED. [facility] 21:06 Admitted to Med/surg accompanied by tech, family with patient, via wheelchair, room ha1 402, with chart, Report called to KIM Nugent 21:06 Condition: stable Signatures: Dispatcher [employer] EDMS Jluis Li MD MD rn Baxter, Heather RN Lizzy Bui RN RN 1 Cecile Sousa RN RN [facility] Gabriella Rivero RN RN kr3
[2022-07-06] MEDS ORDERED: NA CHLORIDE 0.9% 1,000 ML IV SCH (20:35)
[2022-07-06] MEDS ORDERED: ONDANSETRON 4 MG/2 ML VIAL IV PRN (20:35)
[2022-07-06 21:22] VITALS: O2SAT 94
[2022-07-06 22:03] VITALS: BMI 21.9
[2022-07-06] MEDS: PIPER TAZO 3.375 GM in NA CHLORIDE 0.9% 100 ML IV SCH (22:55)
[2022-07-07] MEDS: PIPER TAZO 3.375 GM in NA CHLORIDE 0.9% 100 ML IV SCH ×3 (02:47→16:18)
[2022-07-07 03:42] LABS: Hematocrit 36.2 % (39.6-49.0); Lymphocytes % 13.7 % (15.3-44.8); MCV 86.7 fL (80-100); MPV 8.1 fL (7.6-11.3); RBC Red Blood Cell Count 4.18 M/uL (4.33-5.43)
[2022-07-07 03:57] LABS: Potassium 3.8 mmol/L (3.5-5.1)
[2022-07-07] MEDS ORDERED: GLUCAGON 1 MG/VIAL IM PRN (06:32)
[2022-07-07] MEDS ORDERED: D50W 25 GM/50 ML SYRINGE IV PRN (06:32)
[2022-07-07] MEDS ORDERED: D10W 125 ML IV PRN (06:37)
[2022-07-07] MEDS: INSULIN -REGULAR HUMAN 50 UNIT/0.5 ML ML SQ SCH ×4 (07:30→20:39)
[2022-07-07] MEDS ORDERED: PNEUMOCOCCAL VACCINE 0.5 ML IMVAC ONE (08:00)
[2022-07-07] MEDS: ENOXAPARIN 40 MG/0.4 ML SQ SCH (08:41)
[2022-07-08] MEDS: PIPER TAZO 3.375 GM in NA CHLORIDE 0.9% 100 ML IV SCH ×2 (00:28→09:00)
--- NOTE | 2022-07-08 01:21 | HP ---
Date of Admission: 07/06/2022 Chief Complaint: Cough, feeling weak, tired, sleepy, and dizzy. History Of Present Illness: This is an 89-year-old very pleasant male patient who came into emergenc y room yesterday with complaints of cough and in last few days, he has been feeling very weak, sleepy , dizzy, and very poor appetite. After he came into emergency room, he was evaluated and admitted to the hospital with acute diverticulitis. The patient denies any abdominal pain. No constipation. N o diarrhea. No blood in stool. No fever. No chills. Allergies: TO IV CONTRAST. Medications: List reviewed. Review of Systems: Respiratory: As mentioned above. Constitutional: As mentioned above. All other systems reviewed and negative. Past Medical History: Significant for hypertension, type 2 diabetes mellitus, hyperlipidemia, osteoa rthritis at multiple sites, and colon cancer. Past Surgical History: Reviewed. Family History: Not pertinent. Social History: Negative for smoking and alcohol use. Physical Examination: Vital Signs: This morning temperature 97.3, pulse 63, respiratory rate 16, blood pressure 120/63, ox ygen saturation 95%, height 5 feet 11 inches, weight 157 pounds. General: Awake, alert, oriented, not in distress. HEENT: Head atraumatic, normocephalic. Conjunctivae nonerythematous. Sclerae white. Mouth, no thr ush or edema noted. Ears/Nose, no mass, lesion, discharge noted. Neck: Supple. No JVD, lymph nodes, bruit, thyromegaly noted. Lungs: Bilateral good equal air entry. Clear to auscultation. No rhonchi. No rales. Heart: Normal heart sounds, no murmur or gallop. Abdomen: Soft, bowel sounds normal. No guarding, rigidity, tenderness, mass, hepatosplenomegaly, dis tention, or bruit noted. Extremities: No leg edema. No calf tenderness. Skin: No rash, ulcer, cellulitis. Lymphatics: No lymph node enlargement in neck, supraclavicular, infraclavicular region. Neuro: No focal neurological deficit. Chest: Unremarkable. External Genitalia: Deferred. Rectal: Deferred. Laboratory Data: The patient was negative for influenza A, B, and COVID-19. Urinalysis negative exc ept 3+ protein. Yesterday white count was 10.4, hemoglobin 13.2, and platelets 598. This morning wh ite count is 7.3, hemoglobin 11.9, and platelets 477. Yesterday sodium was 141, potassium 3.7, chlor betty 108, bicarb 22, BUN 35, creatinine 1.97, and glucose 140. Liver function test: Alkaline phospha tase 125, AST 15, ALT 22, and lipase 53. This morning sodium is 143, potassium 3.8, chloride 114, bi carb 23, BUN 32, creatinine 1.61, and glucose 97. CT scan of abdomen and pelvis without contrast pipe ws . Chest x-ray with no acute cardiopulmonary changes. Impression: 1.Acute diverticulitis. 2.Volume depletion. 3.Chronic kidney disease, stage 3a. 4.Anemia, unspecified. 5.Colon cancer. 6.Hypertension. 7.Hyperlipidemia. 8.Osteoarthritis, multiple sites. 9.Type 2 diabetes mellitus. Plan: We will go ahead and admit the patient to hospital for further evaluation and management of th is problem. The patient is appropriate for inpatient and is expected to spend 2 midnights in hospita l. We will continue IV fluids and IV antibiotics. We will provide diet as per order. Ambulation wa s suggested. DVT prophylaxis will be given per order. I will see him tomorrow morning for followup and depending on his condition, we will decide if we can possibly discharge him to go home tomorrow. JACOB/BARBARAL Voice ID: [id number]
[2022-07-08] MEDS: INSULIN -REGULAR HUMAN 50 UNIT/0.5 ML ML SQ SCH (07:30)
[2022-07-08] MEDS: ENOXAPARIN 40 MG/0.4 ML SQ SCH (09:00)
[2022-07-08 09:11] VITALS: BP 113/61; TEMP 97.8
--- NOTE | 2022-07-08 19:55 | DS ---
Date of Discharge: 07/08/2022 Subjective: Patient was seen this morning for followup, sleeping, easily arousable, not in any distr ess. Denies any complaints. Objective: Vital Signs: Reviewed. HEENT: Unremarkable. Lungs: Clear to auscultation. Heart: Sounds normal. Abdomen: Soft. Bowel sounds normal. No guarding, rigidity, tenderness, distention. Extremities: No leg edema. Final Diagnoses: 1.Acute diverticulitis without perforation or bleeding. 2.Volume depletion. 3.Chronic kidney disease stage 3A. 4.Anemia, unspecified. 5.Colon cancer. 6.Hypertension. 7.Hyperlipidemia. 8.Osteoarthritis, multiple sites. 9.Type 2 diabetes mellitus. Discharge Medications And Instructions: 1.Continue all prior home medications. 2.Take Augmentin 500 mg 2 times a day with food for 10 days and prescription was sent to Pharmacy. 3.Follow up at my office next week. Laboratory Data: Influenza A and B test negative. COVID-19 test negative. Urinalysis unremarkable except 3+ protein. Initial WBC count 10.4, hemoglobin 13.2, platelets 598 and day after admission wh ite count was 7.3, hemoglobin 11.9, platelets 477. Upon admission, sodium 141, potassium 3.7, chlori de 108, bicarb 22, BUN 35, creatinine 1.97, and glucose 140. Liver function tests, alkaline phosphat ase 125, AST 15, ALT 22, lipase 53. Day after admission, creatinine was 1.61, BUN 32. Chest x-ray, no acute cardiopulmonary changes. CAT scan of the abdomen and pelvis showing mild to moderate divert iculitis without any complication. Hospital Course: 89-year-old pleasant male patient admitted to the hospital after he came into emerg ency room. Please see dictated H and P for more information. After patient was evaluated in the veronica ency room, he was admitted to the hospital with acute diverticulitis and he was started on IV antib iotics. Overall, his condition improved. He did not have any abdominal pain complaints and he is to lerating diet very well. This morning when I saw him, he was feeling much better and plan is to disc harge him to go home. The patient was discharged in stable condition with above-mentioned medication s and instructions. JACOB/MODL Voice ID: [id number] Report ID: [id number]
== END 2022-07-08 09:31 | disposition home or self-care (01) | DRG 392 ==
LOC: ER 14:36 → ERHOLD 16:46 → 4TH 20:44
PROVIDERS: ADMIT Internal Medicine; ATTEND Internal Medicine
DX: K57.32 Diverticulitis of large intestine without perforation or abscess without bleeding (principal); I12.9 Hypertensive chronic kidney disease with stage 1 through stage 4 chronic kidney disease, or unspecified chronic kidney disease; E11.22 Type 2 diabetes mellitus with diabetic chronic kidney disease; N18.31 Chronic kidney disease, stage 3a; E86.0 Dehydration; R05.9 Cough, unspecified; M62.81 Muscle weakness (generalized); D64.9 Anemia, unspecified; E78.5 Hyperlipidemia, unspecified; M15.9 Polyosteoarthritis, unspecified; Z85.038 Personal history of other malignant neoplasm of large intestine; Z91.041 Radiographic dye allergy status; Z20.822 Contact with and (suspected) exposure to COVID-19
CPT/HCPCS: 0240U; 36415; 71045; 74176; 80048; 80053; 81003; 82947; 83690; 85025; 96374; 96375; 99285; J0744; J1650; J2543; J7030